=== PATIENT | male | born 1990 | race Caucasian/White ===

== ENCOUNTER 2017-05-06 15:28 | Emergency (ER) | payer MEDICAID ==
--- NOTE | 2017-05-06 16:15 | UC ---
Headache HPI - HPI Summary HPI Summary: 26 YEAR OLD MALE PRESENTS WITH COMPLAINS OF SEVERE HEADACHE WITH VERTIGO. - History Of Current Complaint Chief Complaint: UCHeadache Stated Complaint: HEADACHE Time Seen by Provider: 05/06/17 16:15 Hx Obtained From: Patient Onset/Duration: Sudden Onset Onset Of Symptoms: Sudden Currently Pain Is: Current Pain Scale(0-10)= - 7 Pain Scale Used: 0-10 Numeric - 8 Timing: Constant Character: Sharp, Pressure Location of Headache: Occipital Aggravating Factor: Exertion - Allergies/Home Medications Allergies/Adverse Reactions: Allergies Allergy/AdvReac Type Severity Reaction Status Date / Time Latex Allergy Hives Verified 05/06/17 15:58 PMH/Surg Hx/FS Hx/Imm Hx Previously Healthy: Yes - Surgical History Surgical History: Yes Surgery Procedure, Year, and Place: lt elbow repair - Family History Known Family History: Positive: None - Social History Alcohol Use: None Substance Use Type: None Smoking Status (MU): Never Smoked Tobacco Review of Systems Constitutional: Negative Skin: Negative Eyes: Negative ENT: Negative Respiratory: Negative Cardiovascular: Negative Gastrointestinal: Negative Genitourinary: Negative Motor: Negative Neurovascular: Negative Musculoskeletal: Negative Neurological: Headache Psychological: Negative All Other Systems Reviewed And Are Negative: Yes Physical Exam Triage Information Reviewed: Yes Appearance: Well-Appearing Vital Signs: Initial Vital Signs Temp 36.9 C 05/06/17 15:55 Pulse 85 05/06/17 15:55 Resp 18 05/06/17 15:55 BP 120/79 05/06/17 15:55 Pulse Ox 100 05/06/17 15:55 Vital Signs Reviewed: Yes Eye Exam: Normal ENT Exam: Normal Dental Exam: Normal Neck exam: Normal Neck: Positive: 1 Respiratory Exam: Normal Cardiovascular Exam: Normal Abdominal Exam: Normal Musculoskeletal Exam: Normal Neurological Exam: Normal Neurological: Positive: Fatigued, Lethargic Psychological Exam: Normal Skin Exam: Normal Headache Course/Dx - Differential Dx/Diagnosis Provider Diagnoses: HEADACHE. VERTIGO Discharge - Discharge Plan Condition: Stable Disposition: HOME Patient Education Materials: Migraine Headache (ED), Vertigo (ED), Dizziness ( ED) Referrals: Montrell MENDOZA,Gold Vera [Primary Care Provider] - Additional Instructions: PATIENT SUGGESTED TO GO TO ER FOR SEVERE HEADACHE WITH VISUAL CHANGES.
[2017-05-06 16:22] VITALS: BP 120/79
== END 2017-05-06 16:22 | disposition home or self-care (01) ==
LOC: UCEAST 15:28
DX: R51 Headache (principal); R42 Dizziness and giddiness; Z91.040 Latex allergy status
CPT/HCPCS: 99212; G0463

== ENCOUNTER 2017-05-06 16:48 | Emergency (ER) | payer MEDICARE, MEDICAID ==
[2017-05-06 18:52] VITALS: BP 129/80
[2017-05-06] MEDS ORDERED: Meclizine TAB* 12.5 MG PO ONE (20:30)
[2017-05-06] MEDS ORDERED: Butalb/Acetamin/Caff TAB* 1 TAB PO ONE (20:30)
--- NOTE | 2017-05-06 21:20 | RAD ---
INDICATION: Headaches vertigo COMPARISON: None TECHNIQUE: Noncontrast axial source images were acquired from the skull base to the vertex. FINDINGS: Ventricles/sulci: The ventricles and cisterns are normal in size and configuration for age. Brain parenchyma: There is no focal parenchymal finding, evidence of intracranial mass, or intracranial mass effect. Intracranial hemorrhage:None. Extra-axial spaces: There are no abnormal extra axial fluid collections or evidence of extra-axial mass. Calvarium: There is no calvarial fracture or other calvarial abnormality. Scalp: There is no evidence of scalp or extracalvarial soft tissue abnormality. Paranasal sinuses/mastoid: There is opacification of the right maxillary antrum. The remaining paranasal sinuses and mastoid air cells are clear. Other: None. IMPRESSION: NEGATIVE EXAMINATION
--- NOTE | 2017-05-06 22:20 | ED ---
Jorge Luis Stroud Benjamin, scribed for Agustín Rankin MD on 05/06/17 at 2031 . Headache - HPI Summary HPI Summary: 26yo male with hx of migraine c/o with typical migraine like JACKSON for 1 week that is not getting better even after OTC pain meds. Pt also reports room spinning. Pt denies any visual or speech problems. No fever/chills. No neck stiffness. No N/V/D. The patient states he gets seasonal headaches mostly in the spring and also when the fall approaches. The patient reports his headache is 6/10 in intensity, location frontal area. He denies focal weakness, parasthesis, change in vision, speech, hearing, gait. He has no other complaints. He has been taking dramamine. - History Of Current Complaint Chief Complaint: EDHeadache Stated Complaint: HEADACHE/DIZZY Time Seen by Provider: 05/06/17 18:35 Hx Obtained From: Patient Onset/Duration: Gradual Onset, Started weeks ago - 1 week, Still Present Initially Headache Was: Moderate Currently Pain Is: Moderate Timing: Constant Character: Migraine Location of Headache: Frontal - mostly frontal Aggravating Factor: Nothing Allevating Factors: Nothing Associated Signs And Symptoms: Dizziness - room spinning Related History: Similar Episode/DX As: - hx of migraine - Allergies/Home Medications Allergies/Adverse Reactions: Allergies Allergy/AdvReac Type Severity Reaction Status Date / Time Latex Allergy Hives Verified 05/06/17 15:58 PMH/Surg Hx/FS Hx/Imm Hx Neurological History: Reports: Hx Migraine - Surgical History Surgery Procedure, Year, and Place: lt elbow repair - Immunization History Date of Tetanus Vaccine: unk Date of Influenza Vaccine: none Infectious Disease History: No Infectious Disease History: Denies: History Other Infectious Disease, Traveled Outside the [place] in Last 30 Days - Family History Known Family History: Negative: Cardiac Disease - Social History Occupation: Employed Full-time Lives: With Family Alcohol Use: None Substance Use Type: Reports: None Smoking Status (MU): Never Smoked Tobacco Review of Systems Constitutional: Negative Eyes: Negative ENT: Negative Cardiovascular: Negative Respiratory: Negative Gastrointestinal: Negative Genitourinary: Negative Musculoskeletal: Negative Skin: Negative Neurological: Other - room spinning dizziness Positive: Headache - migraine like JACKSON Psychological: Normal All Other Systems Reviewed And Are Negative: Yes Physical Exam Triage Information Reviewed: Yes Vital Signs On Initial Exam: Initial Vitals Temp Pulse Resp BP Pulse Ox 98 F 75 16 126/83 100 05/06/17 16:57 05/06/17 16:57 05/06/17 16:57 05/06/17 16:57 05/06/17 16:57 Vital Signs Reviewed: Yes Appearance: Positive: Well-Appearing, No Pain Distress, Well-Nourished Skin: Positive: Warm, Skin Color Reflects Adequate Perfusion Head/Face: Positive: Normal Head/Face Inspection Eyes: Positive: EOMI ENT: Positive: Normal ENT inspection, TMs normal Neck: Positive: Supple, Nontender. Negative: Nuchal Rigidity Respiratory/Lung Sounds: Positive: Clear to Auscultation, Breath Sounds Present Cardiovascular: Positive: RRR. Negative: Murmur Abdomen Description: Positive: Nontender Musculoskeletal: Positive: Normal, Strength/ROM Intact Neurological: Positive: Sensory/Motor Intact, Alert, Oriented to Person Place, Time, CN Intact II-III, Normal Gait, Finger to Nose - smooth, Speech Normal Psychiatric: Positive: Normal AVPU Assessment: Alert - Gabriel Coma Scale Best Eye Response: 4 - Spontaneous Best Motor Response: 6 - Obeys Commands Best Verbal Response: 5 - Oriented Coma Scale Total: 15 Diagnostics - Vital Signs Vital Signs Temp Pulse Resp BP Pulse Ox 05/06/17 18:50 97.8 F 79 18 129/80 100 05/06/17 16:57 98 F 75 16 126/83 100 - Laboratory Lab Statement: Any lab studies that have been ordered have been reviewed, and results considered in the medical decision making process. - CT Brain CT WO CT Interpretation: No Acute Changes CT Interpretation Completed By: Radiologist - ED physician has reviewed this radiology report and agrees. Re-Evaluation - Re-Evaluation First Eval Change: Improved - feels better after antivert Headache Course/Dx - Course Course Of Treatment: Reviewed pts medication and allergy lists. Blood pressure noted.Ct brain negative. DC home on meclizine, FU with PMD. - Diagnoses Provider Diagnoses: Vertigo, Migraine Discharge - Discharge Plan Condition: Good Disposition: HOME Prescriptions: Meclizine HCl [Meclizine 25] 25 mg PO BID PRN #10 tab PRN Reason: Vertigo Referrals: Montrell MENDOZA,Gold Vera [Primary Care Provider] - The documentation as recorded by the Jorge Luis gooden Benjamin accurately reflects the service I personally performed and the decisions made by me, Agustín Rankin MD.
== END 2017-05-06 22:14 | disposition home or self-care (01) ==
LOC: ED 16:48
DX: G43.909 Migraine, unspecified, not intractable, without status migrainosus (principal); R42 Dizziness and giddiness
CPT/HCPCS: 70450; 99282; A9270-GY

== ENCOUNTER 2019-08-26 16:38 | Emergency (ER) | payer MEDICARE, MEDICAID ==
[2019-08-26] MEDS ORDERED: Sulfamethox/Trimethoprim DS 800/160* TAB PO ONE (17:06)
--- NOTE | 2019-08-26 17:08 | UC ---
Skin Complaint HPI - HPI Summary HPI Summary: 3 days of worsening redness and swelling and pain left axilla---no fever--- - History of Current Complaint Chief Complaint: UCSkin Time Seen by Provider: 08/26/19 17:02 Stated Complaint: BUG BITE Hx Obtained From: Patient Onset/Duration: Sudden Onset, Lasting Days - 2-3, Still Present Timing: Constant Onset Severity: Moderate Current Severity: Moderate Location: Discrete - left axilla Character: Redness, Painful Aggravating Factor(s): Touch Alleviating Factor(s): Nothing - Allergy/Home Medications Allergies/Adverse Reactions: Allergies Allergy/AdvReac Type Severity Reaction Status Date / Time latex Allergy Severe Hives Verified 08/26/19 16:44 PMH/Surg Hx/FS Hx/Imm Hx Previously Healthy: Yes - Surgical History Surgical History: None Surgery Procedure, Year, and Place: lt elbow repair - Family History Known Family History: Negative: Cardiac Disease - Social History Occupation: Disabled Alcohol Use: None Substance Use Type: None Smoking Status (MU): Never Smoked Tobacco Review of Systems All Other Systems Reviewed And Are Negative: Yes Constitutional: Positive: Negative Skin: Positive: Other - 2 abscess left axilla Eyes: Positive: Negative ENT: Positive: Negative Respiratory: Positive: Negative Cardiovascular: Positive: Negative Gastrointestinal: Positive: Negative Genitourinary: Positive: Negative Motor: Positive: Negative Neurovascular: Positive: Negative Musculoskeletal: Positive: Negative Neurological: Positive: Negative Psychological: Positive: Negative Is Patient Immunocompromised?: No Physical Exam Triage Information Reviewed: Yes Appearance: Well-Appearing, No Pain Distress, Well-Nourished Vital Signs Reviewed: Yes Eye Exam: Normal Eyes: Positive: Conjunctiva Clear ENT Exam: Normal ENT: Positive: Normal ENT inspection, Hearing grossly normal. Negative: Trismus , Muffled voice, Hoarse voice Dental Exam: Normal Neck exam: Normal Neck: Positive: Supple, Nontender Respiratory Exam: Normal Respiratory: Positive: Chest non-tender, No respiratory distress, No accessory muscle use Cardiovascular Exam: Normal Cardiovascular: Positive: RRR, Pulses Normal, Brisk Capillary Refill Musculoskeletal Exam: Normal Musculoskeletal: Positive: Strength Intact, ROM Intact, No Edema Neurological Exam: Normal Neurological: Positive: Alert, Muscle Tone Normal Psychological Exam: Normal Skin: Positive: Other - 2 firm abscess left axilla-- Course/Dx - Course Course Of Treatment: warm compress to left axilla, mild soap and water wash avoid talc deodorants-- bactrim ds 1 tab 2 times a day for 10 days---follow with pcp - Diagnoses Provider Diagnosis: Abscess of left axilla Discharge ED - Sign-Out/Discharge Documenting (check all that apply): Patient Departure All imaging exams completed and their final reports reviewed: No Studies - Discharge Plan Condition: Stable Disposition: HOME Prescriptions: Sulfamethox/Trimethoprim DS* [Bactrim DS 800/160 TAB*] 1 tab PO BID #19 tab Patient Education Materials: Abscess (ED), Warm Compress or Soak (ED) Referrals: Montrell MENDOZA,Gold Vera [Primary Care Provider] - If Needed - Billing Disposition and Condition Condition: STABLE Disposition: Home
[2019-08-26 17:10] VITALS: BP 139/79
== END 2019-08-26 17:19 | disposition home or self-care (01) ==
LOC: UCEAST 16:38
DX: L02.412 Cutaneous abscess of left axilla (principal); Z91.040 Latex allergy status
CPT/HCPCS: 99212; A9270-GY; G0463